=== PATIENT | female | born 1970 | race Two or more races ===

== ENCOUNTER 2016-10-01 12:59 | Emergency (ER) | payer MEDICAID ==
[~2016-10-01] VITALS: Ht 157.5 cm; Wt 72.1 kg
[2016-10-01 13:11] VITALS: BP 111/70
[2016-10-01 13:33] LABS: Urine Bilirubin Negative (Negative); Urine Blood Negative /uL (Negative); Urine Color Yellow (Yellow); Urine Glucose Normal (Normal); Urine Ketone Negative (Negative); Urine Mucus FEW (None Seen); Urine Nitrite Negative (Negative); Urine RBC <1 /hpf (0 - 4); Urine Squamous Epithelial Cell FEW /hpf (<5); Urine Urobilinogen Normal (Negative)
[2016-10-01 13:36] LABS: Basophils # (auto) 0 uL; Basophils % (auto) 0.8 % (0.0-2.0); CONDITION Y; DEFINITIVE SEE PRINTOUT; Eosinophils # (auto) 0.3 uL; Eosinophils % (auto) 4.8 % (0.0-7.0); Hemoglobin 10.3 g/dL (12.2-16.2); Mean Corpuscular Hemoglobin 23.4 pg (28.0-32.0); Mean Corpuscular Hgb Conc. 31.1 g/dL (32.0-36.0); Mean Platelet Volume 8.4 fL (7.4-10.4); Monocytes # (auto) 0.6 uL; Monocytes % (auto) 9.6 % (0.0-12.0); Neutrophils % (auto) 50.8 % (37.0-80.0); Platelet Count (auto) 362 10^3/uL (140-450); SUSPECT SEE PRINTOUT; White Blood Cell 5.8 10^3/uL (4.4-10.8)
[2016-10-01 13:41] LABS: Red Cell Distribution Width 34.3 % (11.6-16.0)
[2016-10-01 14:07] LABS: Albumin 3.7 g/dL (3.4-5.0); BUN/Creatinine Ratio 15.1; Bilirubin, Total 0.3 mg/dL (0.2-1.0); Calcium 8.6 mg/dL (8.5-10.1); Potassium 3.7 mmol/L (3.5-5.1); Total Protein 7.7 g/dL (6.4-8.2)
[2016-10-01 14:44] LABS: Anisocytosis Slight; Hypochromia Slight; Platelet Estimate Adequate
== END 2016-10-01 18:21 | disposition home or self-care (01) ==
LOC: ER 12:59
DX: R10.30 Lower abdominal pain, unspecified (principal); D64.9 Anemia, unspecified
CPT/HCPCS: 36415; 80053; 81001; 81025; 85025